=== PATIENT | female | born 1995 ===

== ENCOUNTER 2017-09-12 16:44 | Emergency (ER) | payer MEDICAID ==
--- NOTE | 2017-09-12 17:46 | ED PDOC ---
Arrival/HPI - General Time Seen by Provider: 09/12/17 17:40 Historian: Patient - History of Present Illness Narrative History of Present Illness (Text): 09/12/17 17:43 21 y/o female, no pmh, nkda, approx. 5 weeks , , LMP 07/24/17, c/o suprapubic discomfort with urinary frequency/urgency x 2 days with no fall or trauma. Pt. stated that she has no vaginal bleeding or discharge, no nausea or vomiting, no fever or chills, no headache or night sweat, no dizziness, no change in vision, no palpitation, no other medical or psychological complaints. Past Medical History - Provider Review Nursing Documentation Reviewed: Yes Family/Social History - Physician Review Nursing Documentation Reviewed: Yes Family/Social History: Unknown Family HX Allergies/Home Meds Allergies/Adverse Reactions: Allergies No Known Allergies Allergy (Verified 09/12/17 17:44) Home Medications: Home Meds Medication Instructions Recorded Confirmed Albuterol Sulfate [Proair 0 mcg IH PRN PRN 09/12/17 09/12/17 Resp[place]lick] Review of Systems - Review of Systems Constitutional: absent: Fatigue Eyes: absent: Vision Changes ENT: absent: Hearing Changes Respiratory: absent: SOB, Cough Cardiovascular: absent: Chest Pain Gastrointestinal: absent: Abdominal Pain, Nausea, Vomiting Genitourinary Female: Dysuria, Frequency. absent: Hematuria, Urine Output Changes, Vaginal Bleeding, Vaginal Discharge Skin: absent: Rash, Pruritis Psychiatric: absent: Anxiety, Depression Physical Exam Vital Signs Reviewed: Yes Vital Signs Temp Pulse Resp BP Pulse Ox 09/12/17 17:42 99.2 F 87 18 125/67 100 Temperature: Afebrile Blood Pressure: Normal Pulse: Regular Respiratory Rate: Normal Appearance: Positive for: Well-Appearing, Non-Toxic, Comfortable Pain Distress: Mild Mental Status: Positive for: Alert and Oriented X 3 - Systems Exam Head: Present: Atraumatic, Normocephalic Pupils: Present: PERRL Extroacular Muscles: Present: EOMI Conjunctiva: Present: Normal Mouth: Present: Moist Mucous Membranes Neck: Present: Normal Range of Motion Respiratory/Chest: Present: Clear to Auscultation, Good Air Exchange. No: Respiratory Distress, Accessory Muscle Use Cardiovascular: Present: Regular Rate and Rhythm, Normal S1, S2. No: Murmurs Abdomen: No: Tenderness, Distention, Peritoneal Signs, Rebound, Guarding Genitourinary/Pelvic Exam: Present: Other (Pt. declined) Back: Present: Normal Inspection. No: CVA Tenderness Upper Extremity: Present: Normal Inspection. No: Cyanosis, Edema Lower Extremity: Present: Normal Inspection. No: Edema Neurological: Present: GCS=15, CN II-XII Intact, Speech Normal, Motor Func Grossly Intact, Gait Normal, Memory Normal Skin: Present: Warm, Dry, Normal Color. No: Rashes Psychiatric: Present: Alert, Oriented x 3, Normal Insight, Normal Concentration Medical Decision Making ED Course and Treatment: 09/12/17 17:45 Differential: UTI vs. Ectopic vs. miscarriage -Labs -beta hcg/UA -Transvaginal sonogram -Observe and reassess 09/12/17 20:13 -Urine hcg is positive -UA show +UTI, rocephine 1gm. -Type and screen is O+ -Labs show no acute findings except wbc 16.3 -Betahcg 9391 -Transvaginal sonogram show Endometrial cystic structure is present, presumably an early gestational sac. No yolk sac or pole seen. Recommend close clinical and if necessary sonographic followup to confirm viability. Peripherally vascular complex right ovarian cyst likely corpus luteum. -Pt. feels much better, pain resolved, eating and drinking well, no cva tenderness, no fever or chills, refused pelvic examination, refused admission and stable for outpatient management at this time. wbc 16 is non-specific, can be /uti/stress/pain induced. -Discharge home with keflex, tylenol, stay hydrated, bed rest, follow up with your own pmd and obgyn within 2 days, repeat Urinalysis after completion of antibiotic, repeat cbc in 2-3 days as your wbc is 16 today, return to the ER for any new or worsening signs or symptoms. - Lab Interpretations Lab Results: 09/12/17 18:34 09/12/17 18:34 Lab Results 09/12/17 19:15: Urine Color Yellow, Urine Appearance Clear, Urine pH 6.0, Ur Specific [place] 1.025, Urine Protein 100 H, Urine Glucose (UA) Negative, Urine Ketones Negative, Urine Blood Large H, Urine Nitrate Negative, Urine Bilirubin Negative, Urine Urobilinogen 0.2, Ur Leukocyte Esterase Small H, Urine RBC Pending, Urine WBC Pending 09/12/17 19:05: Blood Type Confirm O POSITIVE 09/12/17 18:34: Blood Type O POSITIVE, Antibody Screen Negative, BBK History Checked No verified bt 09/12/17 18:34: WBC 16.3 H, RBC 4.73, Hgb 12.3, Hct 37.2, MCV 78.6 L, MCH 26.0, MCHC 33.1, RDW 14.4, Plt Count 367, MPV 9.0, Gran % 80.9 H, Lymph % (Auto) 14.2 L, [place] % (Auto) 4.5, Eos % (Auto) 0.3 L, Baso % (Auto) 0.1, Gran # 13.15 H, Lymph # (Auto) 2.3, [place] # (Auto) 0.7 H, Eos # (Auto) 0.1, Baso # (Auto) 0.02 09/12/17 18:34: Beta HCG, Quant 9391.30 H 09/12/17 18:34: Sodium 139, Potassium 4.3, Chloride 102, Carbon Dioxide 26, Anion Gap 15, BUN 12, Creatinine 0.6 L, Est GFR ( Amer) > 60, Est GFR ( Non-Af Amer) > 60, Random Glucose 89, Calcium 9.6, Total Bilirubin 0.3, AST 24, ALT 23, Alkaline Phosphatase 68, Total Protein 7.3, Albumin 4.4, Globulin 2.9, Albumin/Globulin Ratio 1.5 - RAD Interpretation Radiology Orders: 09/12/17 17:49 OB TRANSVAGINAL [US] Stat FINDINGS: Gestation: Endometrial cystic structure is present, with size correlating to gestational age of 5 weeks, 1 day. No yolk sac or pole seen. Placenta/amniotic fluid: Cannot be adequately evaluated due to the early gestational age. Uterus/cervix: The cervix is closed and a length of 3.4 cm. No myometrial mass. Ovaries: The right ovary is 4.4 x 1.7 x 2.4 cm, inclusive of a 2.5 cm thick walled peripherally vascular complex cyst which is most likely corpus luteum. The left ovary is 3.9 x 1.70 0.4 cm with normal grayscale appearance. Normal bilateral color Doppler flow. Free fluid: Trace cul-de-sac free fluid. IMPRESSION: 1. Endometrial cystic structure is present, presumably an early gestational sac. No yolk sac or pole seen. Recommend close clinical and if necessary sonographic followup to confirm viability. 2. Peripherally vascular complex right ovarian cyst likely corpus luteum. Thank you for allowing us to participate in the care of your patient. Dictated and Authenticated by: Brian Batista MD 09/12/2017 7:35 PM Eastern Time ([place] & [place]) Guide Cruise: Radiologist - Medication Orders Current Medication Orders: Ceftriaxone Sodium (Rocephin 1 Gram Ivpb) 1 gm in 100 mls @ 200 mls/hr IVPB STAT STA PRN Reason: Protocol Stop: 09/12/17 20:35 Discontinued Medications Acetaminophen (Tylenol 325mg Tab) 650 mg PO STAT STA Stop: 09/12/17 17:51 Last Admin: 09/12/17 19:22 Dose: 650 mg MAR Pain/Vitals Document 09/12/17 19:22 MS (Rec: 09/12/17 19:24 [place] [facility] [id number] Pain Reassessment Is This A Pain ReAssessment? No Sleep Is patient sleeping during reassessment? No Presence of Pain Presence of Pain Yes Pain Scale Used Pain Scale Used Numeric Location Pain Location Body Site Abdomen Description Intermittent Intensity 6 Scale Used Numeric Pain Behavior Guarding - PA / SAP SPECIALIST / Resident Statement MD/DO has reviewed & agrees with the documentation as recorded. Disposition/Present on Arrival - Present on Arrival Any Indicators Present on Arrival: No History of DVT/PE: No History of Uncontrolled Diabetes: No Urinary Catheter: No History of Decub. Ulcer: No - Disposition Have Diagnosis and Disposition been Completed?: Yes Diagnosis: , Ovarian cyst, UTI (urinary tract infection) Disposition: HOME/ ROUTINE Disposition Time: 17:45 Patient Plan: Discharge Patient Problems: Current Active Problems Problem Status Onset Ovarian cyst Acute Acute Condition: GOOD Additional Instructions: -Discharge home with keflex, tylenol, stay hydrated, bed rest, follow up with your own pmd and obgyn within 2 days, repeat Urinalysis after completion of antibiotic, repeat cbc in 2-3 days as your wbc is 16 today, return to the ER for any new or worsening signs or symptoms. Prescriptions: Acetaminophen [Pain Relief] 500 mg PO QID PRN #25 tablet PRN Reason: Other Cephalexin [Keflex] 500 mg PO QID #28 capsule Referrals: Latia Wu MD [Staff Provider] - Follow up with primary Kayden Bonilla MD [Staff Provider] - Follow up with primary [facility] [place] - Follow up with primary Forms: WORK NOTE
[2017-09-12 18:58] LABS: BASO # 0.02 K/mm3 (0.0-2.0); BASO % 0.1 % (0.0-3.0); EOS # 0.1 (0.0-0.7); EOS % 0.3 % (1.5-5.0); GRAN # 13.15 (1.4-6.5); GRAN % 80.9 % (50.0-68.0); HEMOGLOBIN 12.3 g/dL (12.0-16.0); LYMPH # 2.3 (1.2-3.4); LYMPH % 14.2 % (22.0-35.0); MEAN CELL VOLUME 78.6 fl (80.0-105.0); MEAN CORPUSCULAR HGB CONC 33.1 g/dl (31.0-37.0); MONO # 0.7 (0.1-0.6); MONO % 4.5 % (1.0-6.0); RBC 4.73 10^6/uL (3.5-6.1); RED CELL DISTRIBUTION WIDTH 14.4 % (11.5-14.5); WHITE BLOOD COUNT 16.3 10^3/ul (4.5-11.0)
[2017-09-12 18:59] LABS: ALB/GLOB RATIO 1.5 (1.1-1.8); ALBUMIN 4.4 g/dL (3.0-4.8); ALT/SGPT 23 U/L (7-56); AST/SGOT 24 U/L (14-36); BLOOD UREA NITROGEN 12 mg/dL (7-21); CALCIUM 9.6 mg/dL (8.4-10.5); GFR AFRICAN-AMERICAN > 60; GFR NON-AFRICAN AMERICAN > 60
[2017-09-12 19:29] LABS: URINE BILIRUBIN NEGATIVE (NEGATIVE); URINE BLOOD LARGE (NEGATIVE); URINE GLUCOSE (UA) NEGATIVE (NEGATIVE); URINE LEUKOCYTE ESTERASE SMALL Leu/uL (NEGATIVE); URINE PROTEIN 100 mg/dL (<30 mg/dL); URINE UROBILINOGEN 0.2 E.U./dL (<1 E.U./dL)
[2017-09-12 20:05] LABS: URINE APPEARANCE CLEAR (CLEAR); URINE COLOR YELLOW (YELLOW)
[2017-09-12] MEDS ORDERED: cefTRIAXone 1 gm 1 GM/100 ML BAG IVPB STA (20:06)
[2017-09-12 20:28] LABS: URINE RBC 25 - 30 /hpf (0-2); URINE WBC TNTC /hpf (0-6)
[2017-09-12 20:29] LABS: URINE BACTERIA MOD (NEG)
[2017-09-12 22:13] VITALS: O2SAT 99
[2017-09-12 22:14] VITALS: BP 120/72; PULSE 89; RESP 18; TEMP 98.2
--- NOTE | 2017-09-13 12:27 | US ---
PROCEDURE: OB Pelvic Ultrasound HISTORY: suprapubic discomfort COMPARISON: None available. FINDINGS: UTERUS: Intrauterine gestational sac identified. Sac diameter is 11 mm corresponding to 5 weeks 1 day gestational age. No pole or yolk sac is identified. There is no detectable cardiac activity at this time. There is no subchorionic hemorrhage. Uterus measures 8.2 x 5.0 x 5.9 cm. No mass CERVIX: Long and closed. No cervical abnormality seen. RIGHT OVARY: Measures 4.4 x 1.7 x 2.4 cm. No mass. Normal flow. Corpus luteum noted, 2.5 x 1.9 x 2.3 cm. LEFT OVARY: Measures 3.9 x 1.7 x 1.4 cm. No mass. Normal flow. FREE FLUID: None. OTHER FINDINGS: None. IMPRESSION: Intrauterine gestational sac without pole or yolk sac. Possible early intrauterine gestation. Followup with transvaginal pelvic ultrasound and serial beta HCG is advised. Incidental right ovarian corpus luteum. No subchorionic hemorrhage. The preliminary findings for this examination were reported by [facility] at 7:35 p.m. on 09/12/2017. There is concurrence of this report with the preliminary findings.
== END 2017-09-12 21:38 | disposition home or self-care (01) ==
LOC: ED 16:44
DX: O23.41 Unspecified infection of urinary tract in pregnancy, first trimester (principal); O34.81 Maternal care for other abnormalities of pelvic organs, first trimester; N83.201 Unspecified ovarian cyst, right side; Z3A.01 Less than 8 weeks gestation of pregnancy
CPT/HCPCS: 76817; 80053; 81001; 84702; 85025; 86850; 86900; 87086; 96365; 99283; J0696

== ENCOUNTER 2017-09-13 14:17 | Emergency (ER) | payer MEDICAID ==
[2017-09-13 14:27] VITALS: BMI 29.2
[2017-09-13 14:31] VITALS: RESP 18
--- NOTE | 2017-09-13 14:51 | ED PDOC ---
Arrival/HPI - General Chief Complaint: Female Genitourinary Time Seen by Provider: 09/13/17 14:41 Historian: Patient - History of Present Illness Narrative History of Present Illness (Text): 09/13/17 14:42 21 y/o female, , LMP 07/24/2017, approx. 5 weeks , seen in the ER yesterday for UTI symptoms which she received IV rocephine and discharge home with keflex. Pt. stated that she started to have lower pelvic pain with vaginal spotting started last night after left the ER with no fall or trauma, no fever or chills, no flank pain, no numbness or tingling. Pt. stated that she has been spotting and couple episodes with clot started today, no night sweat, no rash, no other medical or psychological complaints. Past Medical History - Provider Review Nursing Documentation Reviewed: Yes - Infectious Disease Hx of Infectious Diseases: None - Cardiac Hx Cardiac Disorders: No - Pulmonary Hx Respiratory Disorders: Yes Hx Asthma: Yes - Renal Hx Renal Disorder: No - Endocrine/Metabolic Hx Endocrine Disorders: No - Hematological/Oncological Hx Blood Disorders: No - Musculoskeletal/Rheumatological Hx Musculoskeletal Disorders: No - Gastrointestinal Hx Gastrointestinal Disorders: No - Genitourinary/Gynecological Hx Genitourinary Disorders: No - Psychiatric Hx Substance Use: No - Surgical History Hx Tonsillectomy: Yes - Anesthesia Hx Anesthesia: No Family/Social History - Physician Review Nursing Documentation Reviewed: Yes Family/Social History: Unknown Family HX Smoking Status: Current Some Days Smoker Hx Alcohol Use: No Hx Substance Use: No Allergies/Home Meds Allergies/Adverse Reactions: Allergies No Known Allergies Allergy (Verified 09/12/17 17:44) Home Medications: Home Meds Medication Instructions Recorded Confirmed Albuterol HFA [Ventolin HFA 90 1 puff IH PRN PRN 09/13/17 09/13/17 mcg/actuation (8 g)] Review of Systems - Review of Systems Constitutional: absent: Fatigue, Fevers Eyes: absent: Vision Changes ENT: absent: Hearing Changes Respiratory: absent: SOB, Cough Cardiovascular: absent: Chest Pain Gastrointestinal: absent: Abdominal Pain, Nausea, Vomiting Genitourinary Female: Vaginal Bleeding, Other (+pelvic pain) Skin: absent: Rash, Pruritis Neurological: absent: Headache Psychiatric: absent: Anxiety, Depression Physical Exam Vital Signs Reviewed: Yes Vital Signs Temp Pulse Resp BP Pulse Ox 09/13/17 14:30 98.6 F 64 18 111/68 98 Temperature: Afebrile Blood Pressure: Normal Pulse: Regular Respiratory Rate: Normal Appearance: Positive for: Well-Appearing, Non-Toxic, Comfortable Pain Distress: Mild Mental Status: Positive for: Alert and Oriented X 3 - Systems Exam Head: Present: Atraumatic, Normocephalic Pupils: Present: PERRL Extroacular Muscles: Present: EOMI Conjunctiva: Present: Normal Mouth: Present: Moist Mucous Membranes Neck: Present: Normal Range of Motion Respiratory/Chest: Present: Clear to Auscultation, Good Air Exchange. No: Respiratory Distress, Accessory Muscle Use Cardiovascular: Present: Regular Rate and Rhythm, Normal S1, S2. 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 No: Vaginal Discharge, Vaginal Bleeding, Vaginal Lesions, Adenexal Tenderness, Adenexal Mass, Cervical Motion Tendernes, Odor Back: Present: Normal Inspection Upper Extremity: Present: Normal Inspection. No: Cyanosis, Edema Lower Extremity: Present: Normal Inspection. No: Edema Neurological: Present: GCS=15, CN II-XII Intact, Speech Normal Skin: Present: Warm, Dry, Normal Color. No: Rashes Psychiatric: Present: Alert, Oriented x 3, Normal Insight, Normal Concentration Medical Decision Making ED Course and Treatment: 09/13/17 14:57 Differential: Cystitis/pylonephritis vs. Miscarriage vs. Dehydration -labs/betahcg/ua -transvaginal -IVF/tylenol/rocephine -Observe and reassess 09/13/17 16:48 -Sonogram show: 10 mm intrauterine gestational sac corresponding to 5 weeks 0 days. No pole identified. Possible viable early intrauterine . Followup with transvaginal pelvic ultrasound and serial beta HCG evaluation is advised. -Blood type from yesterday is O+ -UA show still mild UTI but much better compared to yesterday, pending urine culture, IV rocephine ordered, prescribed keflex and tylenol yesterday. -Labs show resolved leukocytosis 16 which is down to 8 today. -Betahcg is 9083 from 9391 -Pt. has no active bleeding, comfortable, pain decreased, all labs and radiology results discussed with the patient and there is possible possibility for miscarriage but little too early to determine at this time. Pt. stated that her obgyn is Dr. Juma Hurley. -Case discussed with Dr. Dennison including labs/radiology result, he agreed on the dispo and consult. -Discharge home with education on continue tylenol and keflex at home, repeat the beta in 24-48 hours, hcg on 09/12/2017 was 9391, beta hcg on 09/13/2017 is 9083, you need to follow up with your own pmd and obgyn within 2 days, return to the ER for any new or worsening signs or symptoms. Reassessment Condition: Re-examined, Improved - Lab Interpretations Lab Results: 09/13/17 15:30 09/13/17 15:30 Lab Results 09/13/17 15:30: Beta HCG, Quant 9083.80 H 09/13/17 15:30: Sodium 144, Potassium 4.2, Chloride 105, Carbon Dioxide 25, Anion Gap 18, BUN 14, Creatinine 0.7, Est GFR ( Amer) > 60, Est GFR (Non- Af Amer) > 60, Random Glucose 87, Calcium 9.7, Total Bilirubin 0.3, AST 17, ALT 21, Alkaline Phosphatase 65, Total Protein 7.2, Albumin 4.3, Globulin 2.8, Albumin/Globulin Ratio 1.5 09/13/17 15:30: Urine Color Yellow, Urine Appearance Slight-cloudy, Urine pH 7.0 , Ur Specific [place] 1.015, Urine Protein 30 H, Urine Glucose (UA) Negative, Urine Ketones Negative, Urine Blood Large H, Urine Nitrate Negative, Urine Bilirubin Negative, Urine Urobilinogen 0.2, Ur Leukocyte Esterase Trace H, Urine RBC 2 - 5, Urine WBC 1 - 3, Ur Epithelial Cells 1 - 3, Urine Bacteria Small 09/13/17 15:30: WBC 8.6 D, RBC 4.65, Hgb 12.2, Hct 37.2, MCV 80.0, MCH 26.2, MCHC 32.8, RDW 14.6 H, Plt Count 376, MPV 9.2, Gran % 63.9, Lymph % (Auto) 29.7 , [place] % (Auto) 5.4, Eos % (Auto) 0.8 L, Baso % (Auto) 0.2, Gran # 5.51, Lymph # (Auto) 2.6, [place] # (Auto) 0.5, Eos # (Auto) 0.1, Baso # (Auto) 0.02 I have reviewed the lab results: Yes - RAD Interpretation Radiology Orders: 09/13/17 14:51 TRANSVAGINAL [US] Stat Date of service: 09/13/2017 HISTORY: vaginal bleeding COMPARISON: None available. TECHNIQUE: FINDINGS: UTERUS: Measures cm. No uterine mass. ENDOMETRIUM: There is an intrauterine gestational sac measuring 10 mm in diameter, corresponding to 5 weeks 0 days gestational age. No pole or yolk sac are visualized at this time. There is no subchorionic hemorrhage. CERVIX: No cervical abnormality identified. RIGHT OVARY: Measures 2.8 x 4.3 x 1.8 cm. A 15 mm corpus luteum is noted. There is no solid mass identified. Normal flow. LEFT OVARY: Measures 3.1 x 1.5 x 3.3 cm. No solid mass. Normal flow. FREE FLUID: No significant free fluid noted. OTHER FINDINGS: None. IMPRESSION: 10 mm intrauterine gestational sac corresponding to 5 weeks 0 days. No pole identified. Possible viable early intrauterine . Followup with transvaginal pelvic ultrasound and serial beta HCG evaluation is advised. Manager Agriculture: Radiologist - Medication Orders Current Medication Orders: Discontinued Medications Acetaminophen (Tylenol 325mg Tab) 650 mg PO STAT STA Stop: 09/13/17 14:52 Last Admin: 09/13/17 15:40 Dose: 650 mg MAR Pain/Vitals Document 09/13/17 15:40 HI (Rec: 09/13/17 15:41 HI [facility] [id number] Pain Reassessment Is This A Pain ReAssessment? No Sleep Is patient sleeping during reassessment? No Presence of Pain Presence of Pain Yes Sodium Chloride (Sodium Chloride 0.9%) 1,000 mls @ 999 mls/hr IV .Q1H1M STA Stop: 09/13/17 15:52 Last Admin: 09/13/17 16:24 Dose: 999 mls/hr eMAR Start Stop Document 09/13/17 16:24 HI (Rec: 09/13/17 16:24 HI [facility] [id number] Intravenous Solution Start Date 09/13/17 Start Time 16:24 - PA / SURGICAL SCRUB TECHNOLOGIST / Resident Statement MD/DO has reviewed & agrees with the documentation as recorded. Disposition/Present on Arrival - Present on Arrival Any Indicators Present on Arrival: No History of DVT/PE: No History of Uncontrolled Diabetes: No Urinary Catheter: No History of Decub. Ulcer: No History Surgical Site Infection Following: None - Disposition Have Diagnosis and Disposition been Completed?: Yes Diagnosis: Vaginal bleeding in , UTI (urinary tract infection) Disposition: HOME/ ROUTINE Disposition Time: 16:51 Patient Plan: Discharge Condition: IMPROVED Additional Instructions: Discharge home with education on continue tylenol and keflex at home, repeat the beta in 24-48 hours, hcg on 09/12/2017 was 9391, beta hcg on 09/13/2017 is 9083, you need to follow up with your own pmd and obgyn within 2 days, return to the ER for any new or worsening signs or symptoms. Referrals: Millicent Helm ANP [Primary Care Provider] - Follow up with primary Elsa Hurley MD [Medical Doctor] - Follow up with primary Zain Cifuentes MD [Staff Provider] - Follow up with primary Forms: WORK NOTE
[2017-09-13] MEDS ORDERED: Sodium Chloride 0.9% 1,000 ML IV STA (14:52)
[2017-09-13 16:00] LABS: BASO # 0.02 K/mm3 (0.0-2.0); BASO % 0.2 % (0.0-3.0); EOS # 0.1 (0.0-0.7); EOS % 0.8 % (1.5-5.0); GRAN # 5.51 (1.4-6.5); GRAN % 63.9 % (50.0-68.0); HEMOGLOBIN 12.2 g/dL (12.0-16.0); LYMPH # 2.6 (1.2-3.4); LYMPH % 29.7 % (22.0-35.0); MEAN CORPUSCULAR HEMOGLOBIN 26.2 pg (25.0-35.0); MEAN CORPUSCULAR HGB CONC 32.8 g/dl (31.0-37.0); MEAN PLATELET VOLUME 9.2 fl (7.0-11.0); MONO # 0.5 (0.1-0.6); MONO % 5.4 % (1.0-6.0); RBC 4.65 10^6/uL (3.5-6.1); RED CELL DISTRIBUTION WIDTH 14.6 % (11.5-14.5); WHITE BLOOD COUNT 8.6 10^3/ul (4.5-11.0)
[2017-09-13 16:01] LABS: URINE BILIRUBIN NEGATIVE (NEGATIVE); URINE BLOOD LARGE (NEGATIVE); URINE GLUCOSE (UA) NEGATIVE (NEGATIVE); URINE LEUKOCYTE ESTERASE TRACE Leu/uL (NEGATIVE); URINE PROTEIN 30 mg/dL (<30 mg/dL); URINE UROBILINOGEN 0.2 E.U./dL (<1 E.U./dL)
[2017-09-13 16:02] LABS: URINE APPEARANCE SLIGHT-CLOUDY (CLEAR); URINE COLOR YELLOW (YELLOW)
[2017-09-13 16:06] LABS: URINE BACTERIA SMALL (NEG)
--- NOTE | 2017-09-13 16:27 | US ---
Date of service: 09/13/2017 HISTORY: vaginal bleeding COMPARISON: None available. TECHNIQUE: FINDINGS: UTERUS: Measures cm. No uterine mass. ENDOMETRIUM: There is an intrauterine gestational sac measuring 10 mm in diameter, corresponding to 5 weeks 0 days gestational age. No pole or yolk sac are visualized at this time. There is no subchorionic hemorrhage. CERVIX: No cervical abnormality identified. RIGHT OVARY: Measures 2.8 x 4.3 x 1.8 cm. A 15 mm corpus luteum is noted. There is no solid mass identified. Normal flow. LEFT OVARY: Measures 3.1 x 1.5 x 3.3 cm. No solid mass. Normal flow. FREE FLUID: No significant free fluid noted. OTHER FINDINGS: None. IMPRESSION: 10 mm intrauterine gestational sac corresponding to 5 weeks 0 days. No pole identified. Possible viable early intrauterine . Followup with transvaginal pelvic ultrasound and serial beta HCG evaluation is advised.
[2017-09-13 16:42] LABS: ALB/GLOB RATIO 1.5 (1.1-1.8); ALBUMIN 4.3 g/dL (3.0-4.8); ALT/SGPT 21 U/L (7-56); AST/SGOT 17 U/L (14-36); BLOOD UREA NITROGEN 14 mg/dL (7-21); CALCIUM 9.7 mg/dL (8.4-10.5); GFR AFRICAN-AMERICAN > 60; GFR NON-AFRICAN AMERICAN > 60
[2017-09-13] MEDS ORDERED: cefTRIAXone 1 gm 1 GM/100 ML BAG IVPB STA (16:47)
[2017-09-13 17:28] VITALS: BP 115/72; PULSE 72; O2SAT 99
[2017-09-13 18:07] VITALS: TEMP 98.5
== END 2017-09-13 17:30 | disposition home or self-care (01) ==
LOC: ED 14:17
DX: O23.41 Unspecified infection of urinary tract in pregnancy, first trimester (principal); O20.9 Hemorrhage in early pregnancy, unspecified; Z3A.01 Less than 8 weeks gestation of pregnancy
CPT/HCPCS: 76830; 80053; 81001; 84702; 85025; 87086; 96374; 99284; J0696; J7030

== ENCOUNTER 2017-09-14 00:09 | Emergency (ER) | payer MEDICAID ==
[2017-09-14 00:09] VITALS: BMI 29.2
[2017-09-14 00:18] VITALS: BP 121/75; PULSE 74; RESP 19; TEMP 98.6; O2SAT 100
--- NOTE | 2017-09-14 00:34 | ED PDOC ---
Arrival/HPI - General Chief Complaint: Abdominal Pain Time Seen by Provider: 09/14/17 00:25 - History of Present Illness Narrative History of Present Illness (Text): 09/14/17 00:34 21 y/o female, , LMP 07/24/2017, approx. 5 weeks , seen in the ER yesterday for UTI symptoms which she received IV rocephine and discharge home with keflex. Pt. stated that she started to have lower pelvic pain with vaginal spotting started last night after left the ER with no fall or trauma, no fever or chills, no flank pain, no numbness or tingling. Pt. stated that she has been spotting and couple episodes with clot started today, no night sweat, no rash, no other medical or psychological complaints. Past Medical History - Provider Review Nursing Documentation Reviewed: Yes - Infectious Disease Hx of Infectious Diseases: None - Cardiac Hx Cardiac Disorders: No - Pulmonary Hx Respiratory Disorders: Yes Hx Asthma: Yes - Neurological Hx Neurological Disorder: No - HEENT Hx HEENT Disorder: No - Renal Hx Renal Disorder: No - Endocrine/Metabolic Hx Endocrine Disorders: No - Hematological/Oncological Hx Blood Disorders: No - Integumentary Hx Dermatological Disorder: No - Musculoskeletal/Rheumatological Hx Musculoskeletal Disorders: No - Gastrointestinal Hx Gastrointestinal Disorders: No - Genitourinary/Gynecological Hx Genitourinary Disorders: No - Psychiatric Hx Psychophysiologic Disorder: No Hx Substance Use: No - Surgical History Hx Tonsillectomy: Yes - Anesthesia Hx Anesthesia: No Family/Social History - Physician Review Nursing Documentation Reviewed: Yes Family/Social History: No Known Family HX Smoking Status: Current Some Days Smoker Hx Alcohol Use: No Hx Substance Use: No Allergies/Home Meds Allergies/Adverse Reactions: Allergies pomegranate Allergy (Verified 09/14/17 00:14) ITCHING Home Medications: Home Meds Medication Instructions Recorded Confirmed Albuterol HFA [Ventolin HFA 90 1 puff IH PRN PRN 09/13/17 09/13/17 mcg/actuation (8 g)] Review of Systems - Review of Systems Constitutional: absent: Fatigue, Fevers Eyes: absent: Vision Changes ENT: absent: Hearing Changes Respiratory: absent: SOB, Cough Cardiovascular: absent: Chest Pain Gastrointestinal: absent: Abdominal Pain, Nausea, Vomiting Genitourinary Female: Vaginal Bleeding, Other ((+ pelvic pain)) Skin: absent: Rash, Pruritis Neurological: absent: Headache Psychiatric: absent: Anxiety, Depression Physical Exam - Physical Exam Narrative Physical Exam (Text): 09/14/17 00:36 Head: Present: Atraumatic, Normocephalic Pupils: Present: PERRL Extroacular Muscles: Present: EOMI Conjunctiva: Present: Normal Mouth: Present: Moist Mucous Membranes Neck: Present: Normal Range of Motion Respiratory/Chest: Present: Clear to Auscultation, Good Air Exchange. No: Respiratory Distress, Accessory Muscle Use Cardiovascular: Present: Regular Rate and Rhythm, Normal S1, S2. No: Murmurs Abdomen: No: Tenderness, Distention, Peritoneal Signs, Rebound, Guarding Genitourinary/Pelvic Exam: Present: Normal External Genitalia, Cervical os Closed. No: Vaginal Discharge, Vaginal Bleeding, Vaginal Lesions, Adenexal Tenderness, Adenexal Mass, Cervical Motion Tendernes, Odor Back: Present: Normal Inspection Upper Extremity: Present: Normal Inspection. No: Cyanosis, Edema Lower Extremity: Present: Normal Inspection. No: Edema Neurological: Present: GCS=15, CN II-XII Intact, Speech Normal Skin: Present: Warm, Dry, Normal Color. No: Rashes Psychiatric: Present: Alert, Oriented x 3, Normal Insight, Normal Concentration Vital Signs Reviewed: Yes Vital Signs Temp Pulse Resp BP Pulse Ox 09/14/17 00:16 98.6 F 74 19 121/75 100 Temperature: Afebrile Blood Pressure: Normal Pulse: Regular Respiratory Rate: Normal Appearance: Positive for: Well-Appearing, Non-Toxic, Comfortable Pain Distress: None Mental Status: Positive for: Alert and Oriented X 3 Medical Decision Making ED Course and Treatment: 09/14/17 00:37 Differential: Cystitis/pylonephritis vs. Miscarriage vs. Dehydration -labs/betahcg/ua -transvaginal -IVF/tylenol/rocephine -Observe and reassess - Lab Interpretations I have reviewed the lab results: Yes Disposition/Present on Arrival - Present on Arrival History of DVT/PE: No History of Uncontrolled Diabetes: No Urinary Catheter: No History of Decub. Ulcer: No History Surgical Site Infection Following: None - Disposition Forms: [employer] ([place]ian)
== END 2017-09-14 00:53 | disposition left against medical advice (07) ==
LOC: ED 00:09
DX: Z02.89 Encounter for other administrative examinations (principal); R10.9 Unspecified abdominal pain